=== PATIENT | female | born 1970 | race African-American/Black ===

== ENCOUNTER 2023-10-09 16:57 | Observation (INO) | payer OTHER ==
[2023-10-09 17:09] VITALS: BMI 25.9
[2023-10-09 18:07] LABS: BASO % 0.6 % (0-2.0); EOS % 0.9 % (0-4.5); HEMATOCRIT 40.7 % (32.4-45.2); HEMOGLOBIN 13.6 GM/dL (10.7-15.3); LYMPH % 58.5 % (8-40); MCH 31.2 pg (25.7-33.7); MCHC 33.5 g/dl (32.0-36.0); MEAN CELL VOLUME 93.2 fl (80-96); MEAN PLT VOLUME 7.6 fl (7.5-11.1); MONO % 6.1 % (3.8-10.2); NEUT % 33.9 % (42.8-82.8); PLATELET COUNT 269 10^3/uL (134-434); RBC 4.37 M/mm3 (3.60-5.2); RDW 12.5 % (11.6-15.6); WHITE BLOOD COUNT 7.1 K/mm3 (4.0-10.0)
[2023-10-09 18:15] LABS: INR 1.04 (0.83-1.09); PROTHROMBIN TIME (PATIENT) 12.1 SEC (9.7-13.0)
[2023-10-09 18:18] LABS: ACTIVATED PTT 32.7 SECONDS (25.2-36.5)
[2023-10-09 18:32] LABS: POTASSIUM 4.1 mmol/L (3.5-5.1)
[2023-10-09 18:34] LABS: ALBUMIN 4.4 g/dl (3.4-5.0); BLOOD UREA NITROGEN 19.5 mg/dL (7-18); CALCIUM 9.6 mg/dL (8.5-10.1)
[2023-10-09 18:37] LABS: CREATININE 0.8 mg/dL (0.55-1.3)
[2023-10-09 18:39] LABS: BILIRUBIN,TOTAL 0.2 mg/dL (0.2-1); TOT PROT 7.3 g/dl (6.4-8.2)
[2023-10-09] MEDS ORDERED: IBUPROFEN 600 MG TABLET (FP) PO ONE ×2 (21:04→21:29)
[2023-10-09] MEDS ORDERED: ASPIRIN 81 MG CHEWABLE TABLETS PO ONE (21:11)
[2023-10-09] MEDS ORDERED: ASPIRIN 81 MG CHEWABLE TABLETS ONE (21:29)
[2023-10-09] MEDS ORDERED: MAG HYDROX/AL HYDROX/SIMETH -MYLANTA- ORAL SUSPENSION PO ONE (23:40)
[2023-10-09] MEDS ORDERED: FAMOTIDINE 10 MG TABLET PO ONE (23:40)
[2023-10-09] MEDS ORDERED: NITROGLYCERIN 2% OINTMENT - 1GM PACKET TD ONE ×2 (23:40→23:56)
[2023-10-09] MEDS ORDERED: MAG HYDROX/AL HYDROX/SIMETH 30 ML UNIT-DOSE CUP ONE (23:56)
[2023-10-09] MEDS ORDERED: FAMOTIDINE 10 MG TABLET ONE (23:56)
[2023-10-10] MEDS ORDERED: LIDOCAINE 4% PATCH TP ONE (00:02)
[2023-10-10 00:43] VITALS: TEMP 98.4
[2023-10-10 06:30] LABS: BASO % 0.8 % (0-2.0); EOS % 1.1 % (0-4.5); HEMATOCRIT 38.9 % (32.4-45.2); LYMPH % 47.1 % (8-40); MCH 31.2 pg (25.7-33.7); MCHC 33.3 g/dl (32.0-36.0); MEAN CELL VOLUME 93.6 fl (80-96); MEAN PLT VOLUME 7.6 fl (7.5-11.1); MONO % 6.9 % (3.8-10.2); NEUT % 44.1 % (42.8-82.8); PLATELET COUNT 261 10^3/uL (134-434); RBC 4.16 M/mm3 (3.60-5.2); RDW 12.8 % (11.6-15.6); WHITE BLOOD COUNT 4.7 K/mm3 (4.0-10.0)
[2023-10-10 06:45] LABS: POTASSIUM 4.8 mmol/L (3.5-5.1)
[2023-10-10 06:46] LABS: CALCIUM 9.4 mg/dL (8.5-10.1)
[2023-10-10 06:47] LABS: BLOOD UREA NITROGEN 13.4 mg/dL (7-18)
[2023-10-10 06:50] LABS: CREATININE 0.7 mg/dL (0.55-1.3)
[2023-10-10] MEDS ORDERED: ACETAMINOPHEN 325 MG TABLET (FP) PO PRN (07:03)
[2023-10-10] MEDS ORDERED: ASPIRIN 81 MG CHEWABLE TABLETS PO SCH (10:00)
[2023-10-10] MEDS ORDERED: ACETAMINOPHEN 325 MG TABLET (FP) ONE (10:02)
[2023-10-10] MEDS ORDERED: ASPIRIN 81 MG CHEWABLE TABLETS ONE (10:02)
[2023-10-10 10:22] VITALS: RESP 18
[2023-10-10 11:30] LABS: URINE APPEARANCE CLEAR; URINE BILIRUBIN NEGATIVE (NEGATIVE); URINE COLOR YELLOW; URINE GLUCOSE (UA) NEGATIVE (NEGATIVE); URINE KETONE NEGATIVE (NEGATIVE); URINE LEUK ESTERASE NEGATIVE (NEGATIVE); URINE NITRITE NEGATIVE (NEGATIVE); URINE PROTEIN NEGATIVE (NEGATIVE); URINE UROBILINOGEN 0.2 mg/dL (0.2-1.0)
[2023-10-10 14:18] VITALS: BP 140/90; PULSE 67
== END 2023-10-10 14:10 | disposition home or self-care (01) ==
LOC: JER 16:57 → JERBED 21:20
PROVIDERS: ADMIT Internal Medicine; ATTEND Family Medicine
DX: R07.9 Chest pain, unspecified (principal); I10 Essential (primary) hypertension; D64.9 Anemia, unspecified
CPT/HCPCS: 0241U-QW; 36415; 71046-TC-FY; 71275-TC; 74174-TC; 80048; 80053; 80061; 81003; 83880; 84443; 84484; 85025; 85379; 85610; 85730; 93005; 93010; 99285-25; G0378; Q9967